=== PATIENT | male | born 1935 | race Caucasian/White ===

== ENCOUNTER 2016-08-23 10:17 | Observation (INO) | payer OTHER, BC ==
--- NOTE | 2016-08-23 11:04 | DX ---
PA and lateral chest. Clinical History: Trauma. Right-sided chest pain. Comparison Study: January 12, 2014.. Findings: Patchy atelectasis is present in the lung bases bilaterally. No pneumothorax or displaced r ib fracture identified. No evidence of pleural hemorrhage. Heart size is normal. Impression: Bilateral lower lobe atelectasis. No pneumothorax or displaced rib fracture identified. Rib detail films may be of benefit as appropriate clinically..
[2016-08-23] MEDS ORDERED: ASPIRIN 81 MG CHEWABLE TAB PO ONE (11:35)
--- NOTE | 2016-08-23 11:43 | CPEKG ---
Heart Rate: 51 RR Interval: 1176 P-R Interval: 220 QRSD Interval: 92 QT Interval: 440 QTC Interval: 406 P [place]: 36 QRS [place]: -50 T Wave [place]: 10 EKG Severity - ABNORMAL ECG - EKG Impression: SINUS RHYTHM EKG Impression: FIRST DEGREE AV BLOCK EKG Impression: LEFT ANTERIOR FASCICULAR BLOCK Electronically Signed By: Sandor Pratt 23-Aug-2016 15:40:28
[2016-08-23 11:46] LABS: % IMMATURE GRANULYOCYTES 0.5 % (0.0-1.1); ABSOLUTE IMMATURE GRANULOCYTES 0.04 10^3/uL (0.00-0.10); ADD DIFF? NO; ADD MORPH? NO; ADD SCAN? NO; ATYPICAL LYMPHOCYTE FLAG 70 (0-99); FRAGMENT RBC FLAG 0 (0-99); HEMATOCRIT 37.1 % (40.0-51.0); HEMOGLOBIN 12.4 g/dL (13.7-17.5); LEFT SHIFT FLG 0 (0-99); LIPEMIA HEMOLYSIS FLAG 80 (0-99); MEAN CELL HEMOGLOBIN 32.7 pg (27.9-34.1); MEAN CELL HEMOGLOBIN CONCENTR. 33.4 g/dL (32.4-36.7); MEAN CELL VOLUME 97.9 fL (81.5-99.8); MEAN PLATELET VOLUME 9.8 fL (8.7-11.7); PLATELET CLUMPS FLAG 0 (0-99); PLATELET COUNT 162 10^3/uL (150-400); RED BLOOD CELL COUNT 3.79 10^6/uL (4.40-6.38); RED CELL DISTRIBUTION WIDTH 14.2 % (11.5-15.2)
[2016-08-23] MEDS ORDERED: NS 500 ML IV ONE (12:00)
[2016-08-23 12:07] LABS: ANION GAP 9 mEq/L (8-16); CALCIUM 8.6 mg/dL (8.5-10.4); CARBON DIOXIDE 22 mEq/l (22-31); CHLORIDE 107 mEq/L (97-110); CREATININE 1.7 mg/dL (0.7-1.3); GLOMERULAR FILTRATION RATE 39; GLUCOSE 115 mg/dL (70-100); POTASSIUM 4.2 mEq/L (3.5-5.2); SODIUM 138 mEq/L (134-144)
[2016-08-23 12:23] LABS: TROPONIN I < 0.012 ng/mL (0-0.034)
--- NOTE | 2016-08-23 12:34 | UCPHY ---
H & P Patient Type: Established Chief Complaint Nursing Narrative: fell 1 wk ago hurting upper chest - neg CT @ [facility] [place] after- has had URI x 2 wks with wet cough- yesterday while getting ready in the am felt sudden rt chest pain rad to lower rt rib area- cont today inc. pain with Deep breath and Coughing- some SOB with the pain- finished antibotics last week for URI Time Seen by Provider: 08/23/16 11:17 HPI/ROS: This patient complains of right-sided pleuritic chest pain. He describes it as in the lower portion of his chest in explains that it is worse with a deep breath. This started last night gradual in onset and persists today a moderate severity. He notes no exacerbating or alleviating factors for symptoms. He reports that this is different than his presentation to [facility] [place] 6 days ago. He explains that he has syncopal episode resulted in a minor head injury. He was evaluated for that at [facility] [place] Emergency Department with a negative head and neck CT. He also describes antecedent URI symptoms with a congested feeling cough for 2 weeks but no significant worsening of the symptoms recently. He sees Dr. mendez from Cardiology as history of 2 prior cardiac stents as well as previous syncopal episodes of unclear etiology and he has an implanted monitor his chest to evaluate for dysrhythmias. Reports he does not have a pacemaker. ROS: Constitutional: No fevers or other complaints HEENT: No headache. Musculoskeletal: No recent injuries or pain. Pulmonary: As per HPI. He denies any significant production from his intermittent cough which she feels is improving. Cardiovascular: He has noticed heart palpitations. He reports no diaphoresis. No recent nausea or vomiting. No lower extremity swelling though he does report calf cramps more frequently in recent nights. GI: No belly pain again no nausea or vomiting. No diarrhea. : No complaints integumentary: No skin rash. 10 point ROS is otherwise negative Source: Patient, Family Exam Limitations: No limitations - Personal History Current Tetanus Diphtheria and Acellular Pertussis (TDAP): Yes - Medical/Surgical History PMH: Paroxysmal A flutter and AFib On Pradaxa Renal insufficiency followed by Dr. Jerome Hx Asthma: No Hx Chronic Respiratory Disease: No Hx Diabetes: No Hx Cardiac Disease: Yes Hx Renal Disease: No Hx Cirrhosis: No Hx Alcoholism: No Hx HIV/AIDS: No Hx Splenectomy or Spleen Trauma: No Other PMH: 2 CARDIAC STENTS - Family History Significant Family History: No pertinent family hx - Social History Smoking Status: Never smoked Alcohol Use: None Drug Use: None - Physical Exam Exam: General Appearance: Pleasant 80-year-old male Alert, no distress. Eyes: Pupils equal and round no pallor or injection. ENT, Mouth: Mucous membranes moist. Respiratory: There are no retractions, lungs are clear to auscultation. No chest wall tenderness. Cardiovascular: Regular rate and rhythm. No murmur gallop or rub appreciated. No leg tenderness or swelling Gastrointestinal: Abdomen is soft and nontender, no masses, bowel sounds normal. Neurological: Alert with no focal deficits. Skin: Warm and dry, no rashes. Musculoskeletal: Neck is supple nontender. Extremities are symmetrical, full range of motion. Psychiatric: Mood and affect are normal DIFFERENTIAL DIAGNOSIS: After history and physical exam differential diagnosis was considered for PE, pneumonia cardiac dysrhythmia, sick sinus syndrome, Constitutional: Initial Vital Signs Temperature (C) 36.6 C 08/23/16 10:39 Heart Rate 75 08/23/16 10:39 Respiratory Rate 20 08/23/16 10:39 Blood Pressure 145/78 H 08/23/16 10:39 O2 Sat (%) 95 08/23/16 10:39 O2 Delivery Mode Room Air Allergies/Adverse Reactions: No Known Allergies Allergy (Verified 05/01/14 10:20) Home Medications: Medication Instructions Recorded Aspirin [Aspirin 81mg (OTC)] 81 mg PO DAILY 10/21/13 Atorvastatin Calcium [Lipitor 10 10 mg PO HS 10/21/13 mg (RX)] Calcium Carb/Vit D3/Minerals 1 each PO DAILY 10/21/13 [Calcium 600+D Plus Minerals Tb] Cholecalciferol Vit D3 [Vitamin D3 1,000 units PO DAILY 10/21/13 (OTC)] Folic Acid [Folic Acid 1 MG (RX)] 800 mcg PO BID 10/21/13 Lisinopril [Zestril 10 mg (RX)] 10 mg PO DAILY 10/21/13 Methotrexate Sodium [Methotrexate] 12.5 mg PO FR 10/21/13 Metoprolol Succinate Xr [Toprol Xl] 25 mg PO DAILY 10/21/13 Multivitamins [Tab-A-Michael] 1 each PO DAILY 10/21/13 inFLIXimab [Remicade Inj 100 mg 500 mg IV Q56D 10/21/13 (RX)] Ranitidine HCl 05/01/14 Pradaxa 08/23/16 Tamsulosin HCl 08/23/16 Medical Decision Making - Diagnostics EKG Interpretation: 12 lead EKG performed shortly after arrival reveals sinus rhythm at 51 PA interval 220 QRS of 92, QTC of 406 [place]: P of 36, QRS of-50, T of 10 Overall assessment sinus rhythm with first-degree AV block and left anterior fascicular block. ED Course/Re-evaluation: IV, monitor, aspirin 324 Patient has been intermittently bradycardic to the 40s while here but does not notice significant lightheadedness with this. His other vital signs have been stable. Patient has an elevated D-dimer. This in the setting of the pleuritic pain and some calf cramps recently and elevated D-dimer, I feel he warrants further evaluation to rule out PE. However the patient's creatinine is elevated and his BUN is creatinine is elevated c/w his renal insuffiency. Given his age, comorbidities of coronary artery disease with previous stents and recent syncopal episodes feel this patient warrants a telemetry admission for further evaluation. Troponin is normal. Other labs are normal. Despite this presentation he is stable here. He may warrant a V/Q scan or other further workup. I spoke with Mallory Pearec, hospitalist who accepts this patient to Dr. Grajeda for telemetry admission for further evaluation. I spoke with Dr. Malone , the patient's answering service operator who reveals that he intermittently has some atrial fib and flutter but nothing recently on the monitor. He agrees with the plan for admission for further evaluation. Patient did have a normal appearing nml appearing perfusion test in November of this past year On a recheck at 2:45 p.m. the patient reports no chest pain at rest. With deep breath or cough he has pain on the right side. His vitals remained stable - Data Points Laboratory Results: Laboratory Results 08/23/16 11:44 08/23/16 11:44 08/23/16 08/23/16 14:00 11:44 WBC 7.37 10^3/uL (3.80-9.50) RBC 3.79 L 10^6/uL (4.40-6.38) Hgb 12.4 L g/dL (13.7-17.5) Hct 37.1 L % (40.0-51.0) MCV 97.9 fL (81.5-99.8) MCH 32.7 pg (27.9-34.1) MCHC 33.4 g/dL (32.4-36.7) RDW 14.2 % (11.5-15.2) Plt Count 162 10^3/uL (150-400) MPV 9.8 fL (8.7-11.7) Neut % (Auto) 65.2 % (39.3-74.2) Lymph % (Auto) 16.7 % (15.0-45.0) [place] % (Auto) 11.1 % (4.5-13.0) Eos % (Auto) 5.4 % (0.6-7.6) Baso % (Auto) 1.1 % (0.3-1.7) Nucleat RBC Rel Count 0.0 % (0.0-0.2) Absolute Neuts (auto) 4.80 10^3/uL (1.70-6.50) Absolute Lymphs (auto) 1.23 10^3/uL (1.00-3.00) Absolute Monos (auto) 0.82 H 10^3/uL (0.30-0.80) Absolute Eos (auto) 0.40 10^3/uL (0.03-0.40) Absolute Basos (auto) 0.08 10^3/uL (0.02-0.10) Absolute Nucleated RBC 0.00 10^3/uL (0-0.01) Immature Gran % 0.5 % (0.0-1.1) Immature Gran # 0.04 10^3/uL (0.00-0.10) D-Dimer 2.05 H ug/mLFEU (0.00-0.50) Sodium 138 mEq/L (134-144) Potassium 4.2 mEq/L (3.5-5.2) Chloride 107 mEq/L (97-110) Carbon Dioxide 22 mEq/l (22-31) Anion Gap 9 mEq/L (8-16) BUN 24 H mg/dL (7-23) Creatinine 1.7 H mg/dL (0.7-1.3) Estimated GFR 39 Glucose 115 H mg/dL (70-100) Calcium 8.6 mg/dL (8.5-10.4) Troponin I < 0.012 ng/mL (0-0.034) Urine Color YELLOW Urine Appearance CLEAR Urine pH 6.0 (5.0-7.5) Ur Specific [place] 1.010 (1.002-1.030) Urine Protein NEGATIVE (NEGATIVE) Urine Ketones NEGATIVE (NEGATIVE) Urine Blood 2+ H (NEGATIVE) Urine Nitrate NEGATIVE (NEGATIVE) Urine Bilirubin NEGATIVE (NEGATIVE) Urine Urobilinogen 0.2 EU (0.2-1.0) Ur Leukocyte Esterase NEGATIVE (NEGATIVE) Urine RBC 5-10 H /hpf (0-3) Urine WBC 0-1 /hpf (0-3) Ur Epithelial Cells NONE SEEN /lpf (NONE-1+) Urine Sperm OCCASIONAL H /hpf (NONE SEEN) Ur Culture Indicated? Pending Urine Glucose NEGATIVE (NEGATIVE) Medications Given: Discontinued Medications Aspirin (Aspirin) 324 mg PO EDNOW ONE Stop: 08/23/16 11:36 Last Admin: 08/23/16 11:44 Dose: 324 mg Sodium Chloride (Ns) 500 mls @ 1,500 mls/hr IV ONCE ONE Stop: 08/23/16 12:19 Last Admin: 08/23/16 12:00 Dose: 500 mls Departure - Departure Disposition: [facility] Inpatient Acute Clinical Impression: Pleuritic chest pain, 1St degree AV block, Sinus bradycardia Condition: Fair - PQRS PQRS Measurement: 134: Depression screening and followup, PRIME MD-PHQ2 (12 years and older) Over the last 2 weeks, how often have you been bothered by any of the following problems? 1. Feeling down, depressed, or hopeless? 2. Little interest or pleasure in doing things? Patient answered no to both 1 and 2 130: Documentation of medications. Reviewed all patient medications, doses, route and frequency. 226: Do you smoke? [No.] 47: 65 and older: Advanced care planning. Patient designates surrogate decision maker as spouse 51: 18 years old and older with diagnosis of COPD, spirometry performance. NA 52: 18 years old and older with COPD and symptoms of COPD or FEV1<60% predicted prescribed a B Agonist. NA
[2016-08-23 14:12] LABS: COLOR YELLOW; LEUKOCYTE ESTERASE,URINE NEGATIVE (NEGATIVE); NITRITE,URINE NEGATIVE (NEGATIVE)
[2016-08-23 14:18] LABS: WBC,URINE 0-1 /hpf (0-3)
[2016-08-23] MEDS ORDERED: ONDANSETRON 4 MG/2 ML VIAL IVP PRN (19:42)
[2016-08-23] MEDS ORDERED: ONDANSETRON DISINTEGRATING 4 MG TAB PO PRN (19:42)
[2016-08-23] MEDS ORDERED: ACETAMINOPHEN 325 MG TAB PO PRN (19:42)
--- NOTE | 2016-08-23 20:07 | PDGENHP ---
History and Physical - Chief Complaint RIGHT SIDED CHEST PAIN - History of Present Illness 80 YO Male with MMP sent from urgent care for further evaluation of right sided chest pain since this morning and elevated d-dimer. He has extensive cardiac hx and obtains his care from Dr. Malone and Dr. Sheikh. On Saturday (6 days ago) he had a syncopal episode with LOC and was admitted to [facility]. Per his report, he had a unremarkable CT brain and neck. No chest imaging was performed per his report. He did have nuclear stress test which was normal per his report. He was started on metoprolol He has a hx of bradycardia and syncope dating back to at least 2013 per notes. He is on Pradaxa for AC for unclear reasons, although per the urgent care notes , there has been reported afib. 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 His D-Dimer was elevated, but given his CRF, a CTA was not performed. He has pleuritic pain and some pain with movement. Denies CP other than right sided pain which is mostly around the lower right ribs. A CXR showed atelectasis, but no infiltrate ROS:+ per HPI, otherwise negative PMHX: CAD, Syncope, bradycardia, Afib, Abdominal Aortic Dissection, HTN, HLD, Chronic renal insufficiency (baseline cr is 1.7) SOC: NO TOBACCO, NO ETOH MED/ALL: REVIEWED O: VSS, ON RA NAD AAOX3 MMM NO JVD RRR DECREASE LUNG SOUNDS CHEST WITH NO TTP NO RIGHT RIB PAIN ON PALPATION NO LE EDEMA LABS REVIEWED: TROP NEGATIVE, D-DIMER SLIGHT ELEVATION, CR. 1.7, CBC OK CXR: ATELECTASIS EKG: FIRST DEGREE BLOCK, NO ACUTE CHANGES I/P #PLEURITIC CHEST PAIN OF UNCLEAR ETIOLOGY. LIKELY NOT CARDIAC IN NATURE #BRADYCARDIA IN SETTING OF CHRONIC BRADYCARDIA WITH RECENT RESTART OF METOPROLOL #HX OF AFIB PER REPORT #RECENT SYNCOPE EPISODE (6 DAYS AGO, NONE SINCE), W/U LIKELY AT [facility] #ELEVATED D-DIMER IN A PT ON CHRONIC AC WITH PRADAXA #HTN WITH REPORTED LOW INTERMITTENT BP #CRI: AT BASELINE #RA PLAN: GIVEN THAT HE IS ON PRADAXA, I DOUBT THAT THIS IS P.E. WILL CONTINUE HIS CURRENT DOSE WHICH IS LIKELY BEING RENALLY DOSED. WILL CHECK A F/Q SCAN. WILL ALSO OBTAIN SERIAL TROPS AND TTE, ALTHOUGH SUSPECT THAT THIS IS NOT CARDIAC IN NATURE. ETIOLOGY MAY BE COSTOCHONDRITIS VS MUSCULAR VS OTHER. GIVEN HIS CRI, WILL HOLD OFF ON CONTRAST STUDY FOR NOW. SYMPTOMATIC MGMT GIVEN THAT HE HAS BRADYCARDIA AND SYNCOPE, WILL STOP METOPROLOL. WILL NEED TO MONITOR CLOSELY GIVEN REPORTED HX OF AFIB. CARDS WAS NOTIFIED BY THE URGENT CARE. WILL DECREASE LISINOPRIL TO 2.5 MG DAILY. HE TAKES THIS FOR HTN AND RENAL PROTECTION RESTART APPROPRIATE HOME MEDS LIMITED CODE: DOES NOT WANT INTUBATION TOTAL CARE TIME IS 65 MINUTES History Information - Allergies/Home Medication List Allergies/Adverse Reactions: No Known Allergies Allergy (Verified 05/01/14 10:20) Home Medications: Atorvastatin Calcium [Lipitor 10 mg (RX)] 10 mg PO HS 10/21/13 [Last Taken 10/20 23:00] Calcium Carb/Vit D3/Minerals [Calcium 600+D Plus Minerals Tb] 1 each PO DAILY [Last Taken 10/20/13 08:00] Cholecalciferol Vit D3 [Vitamin D3 (OTC)] 1,000 units PO DAILY 10/21/13 [Last Taken 10/20/13 08:00] Folic Acid [Folic Acid 1 MG (RX)] 800 mcg PO BID 10/21/13 [Last Taken 10/20/13 18:30] Methotrexate Sodium [Methotrexate] 12.5 mg PO FR 10/21/13 [Last Taken 10/16/13] inFLIXimab [Remicade Inj 100 mg (RX)] 500 mg IV Q56D 10/21/13 [Last Taken ] Ranitidine HCl 05/01/14 [Last Taken Unknown] Aspirin EC [Aspirin EC 81 mg (*)] 81 mg PO DAILY 08/23/16 [Last Taken 08/23/16] Dabigatran Etexilate Mesylate [Pradaxa] 75 mg PO BID 08/23/16 [Last Taken 08:00] Lisinopril [Zestril 5 mg (*)] 5 mg PO HS 08/23/16 [Last Taken 08/22/16] Metoprolol Succinate Xr [Toprol Xl 25 mg (*)] 25 mg PO DAILY 08/23/16 [Last Taken 08/23/16] Multivitamins [Multivitamin (*)] 1 each PO DAILY 08/23/16 [Last Taken 08/23/16] Tamsulosin HCl 08/23/16 [Last Taken Unknown] I have personally reviewed and updated: medical history, social history - Social History Smoking Status: Never smoked Alcohol Use: None Drug Use: None Physical Exam Temp Pulse Resp BP Pulse Ox 36.7 C 55 L 20 134/68 H 95 08/23/16 17:43 08/23/16 17:43 08/23/16 17:43 08/23/16 17:43 08/23/16 17:43 Lab Data & Imaging Review 08/23/16 11:44 08/23/16 11:44 WBC 7.37 10^3/uL (3.80-9.50) 08/23/16 11:44 RBC 3.79 10^6/uL (4.40-6.38) L 08/23/16 11:44 Hgb 12.4 g/dL (13.7-17.5) L 08/23/16 11:44 Hct 37.1 % (40.0-51.0) L 08/23/16 11:44 MCV 97.9 fL (81.5-99.8) 08/23/16 11:44 MCH 32.7 pg (27.9-34.1) 08/23/16 11:44 MCHC 33.4 g/dL (32.4-36.7) 08/23/16 11:44 RDW 14.2 % (11.5-15.2) 08/23/16 11:44 Plt Count 162 10^3/uL (150-400) 08/23/16 11:44 MPV 9.8 fL (8.7-11.7) 08/23/16 11:44 Neut % (Auto) 65.2 % (39.3-74.2) 08/23/16 11:44 Lymph % (Auto) 16.7 % (15.0-45.0) 08/23/16 11:44 [place] % (Auto) 11.1 % (4.5-13.0) 08/23/16 11:44 Eos % (Auto) 5.4 % (0.6-7.6) 08/23/16 11:44 Baso % (Auto) 1.1 % (0.3-1.7) 08/23/16 11:44 Nucleat RBC Rel Count 0.0 % (0.0-0.2) 08/23/16 11:44 Absolute Neuts (auto) 4.80 10^3/uL (1.70-6.50) 08/23/16 11:44 Absolute Lymphs (auto) 1.23 10^3/uL (1.00-3.00) 08/23/16 11:44 Absolute Monos (auto) 0.82 10^3/uL (0.30-0.80) H 08/23/16 11:44 Absolute Eos (auto) 0.40 10^3/uL (0.03-0.40) 08/23/16 11:44 Absolute Basos (auto) 0.08 10^3/uL (0.02-0.10) 08/23/16 11:44 Absolute Nucleated RBC 0.00 10^3/uL (0-0.01) 08/23/16 11:44 Immature Gran % 0.5 % (0.0-1.1) 08/23/16 11:44 Immature Gran # 0.04 10^3/uL (0.00-0.10) 08/23/16 11:44 D-Dimer 2.05 ug/mLFEU (0.00-0.50) H 08/23/16 11:44 Sodium 138 mEq/L (134-144) 08/23/16 11:44 Potassium 4.2 mEq/L (3.5-5.2) 08/23/16 11:44 Chloride 107 mEq/L (97-110) 08/23/16 11:44 Carbon Dioxide 22 mEq/l (22-31) 08/23/16 11:44 Anion Gap 9 mEq/L (8-16) 08/23/16 11:44 BUN 24 mg/dL (7-23) H 08/23/16 11:44 Creatinine 1.7 mg/dL (0.7-1.3) H 08/23/16 11:44 Estimated GFR 39 08/23/16 11:44 Glucose 115 mg/dL (70-100) H 08/23/16 11:44 Calcium 8.6 mg/dL (8.5-10.4) 08/23/16 11:44 Troponin I < 0.012 ng/mL (0-0.034) 08/23/16 11:44 Urine Color YELLOW 08/23/16 14:00 Urine Appearance CLEAR 08/23/16 14:00 Urine pH 6.0 (5.0-7.5) 08/23/16 14:00 Ur Specific [place] 1.010 (1.002-1.030) 08/23/16 14:00 Urine Protein NEGATIVE (NEGATIVE) 08/23/16 14:00 Urine Ketones NEGATIVE (NEGATIVE) 08/23/16 14:00 Urine Blood 2+ (NEGATIVE) H 08/23/16 14:00 Urine Nitrate NEGATIVE (NEGATIVE) 08/23/16 14:00 Urine Bilirubin NEGATIVE (NEGATIVE) 08/23/16 14:00 Urine Urobilinogen 0.2 EU (0.2-1.0) 08/23/16 14:00 Ur Leukocyte Esterase NEGATIVE (NEGATIVE) 08/23/16 14:00 Urine RBC 5-10 /hpf (0-3) H 08/23/16 14:00 Urine WBC 0-1 /hpf (0-3) 08/23/16 14:00 Ur Epithelial Cells NONE SEEN /lpf (NONE-1+) 08/23/16 14:00 Urine Sperm OCCASIONAL /hpf (NONE SEEN) H 08/23/16 14:00 Ur Culture Indicated? NOT INDICATED (NI) 08/23/16 14:00 Urine Glucose NEGATIVE (NEGATIVE) 08/23/16 14:00 Assessment & Plan Assessment: 1St degree AV block (Acute) Pleuritic chest pain (Acute) Sinus bradycardia (Acute)
[2016-08-23] MEDS: DABIGATRAN ETEXILATE MESYL 75 MG CAP PO SCH (22:22)
[2016-08-23] MEDS: OXYCODONE/APAP 5/325 TAB PO PRN (22:26)
[2016-08-24 00:40] VITALS: RESP 16
[2016-08-24 05:05] LABS: % IMMATURE GRANULYOCYTES 0.4 % (0.0-1.1); ABSOLUTE IMMATURE GRANULOCYTES 0.03 10^3/uL (0.00-0.10); ADD DIFF? NO; ADD MORPH? NO; ADD SCAN? NO; ATYPICAL LYMPHOCYTE FLAG 80 (0-99); FRAGMENT RBC FLAG 0 (0-99); HEMOGLOBIN 12.4 g/dL (13.7-17.5); LEFT SHIFT FLG 0 (0-99); LIPEMIA HEMOLYSIS FLAG 80 (0-99); MEAN CELL HEMOGLOBIN 32.6 pg (27.9-34.1); MEAN CELL HEMOGLOBIN CONCENTR. 33.5 g/dL (32.4-36.7); MEAN CELL VOLUME 97.4 fL (81.5-99.8); MEAN PLATELET VOLUME 10.2 fL (8.7-11.7); PLATELET CLUMPS FLAG 10 (0-99); PLATELET COUNT 176 10^3/uL (150-400); RED CELL DISTRIBUTION WIDTH 14.1 % (11.5-15.2)
[2016-08-24 05:17] LABS: ANION GAP 8 mEq/L (8-16); CALCIUM 8.4 mg/dL (8.5-10.4); CARBON DIOXIDE 25 mEq/l (22-31); CHLORIDE 108 mEq/L (97-110); CREATININE 1.7 mg/dL (0.7-1.3); GLOMERULAR FILTRATION RATE 39; GLUCOSE 83 mg/dL (70-100); MAGNESIUM 1.8 mg/dL (1.6-2.3); POTASSIUM 4.4 mEq/L (3.5-5.2); SODIUM 141 mEq/L (134-144)
[2016-08-24 05:24] LABS: TROPONIN I < 0.012 ng/mL (0-0.034)
[2016-08-24] MEDS ORDERED: [UNRECOGNIZED DRUG - OTHER] PO SCH (09:00)
[2016-08-24] MEDS ORDERED: ASPIRIN EC 81 MG TAB PO SCH (09:00)
[2016-08-24] MEDS ORDERED: MULTIVITAMINS 1 EACH TAB PO SCH (09:00)
[2016-08-24] MEDS ORDERED: MINERALS PO SCH (09:00)
[2016-08-24] MEDS ORDERED: LISINOPRIL 2.5 MG TAB PO SCH (09:00)
[2016-08-24] MEDS ORDERED: CALCIUM CARB W/VIT D 500 MG TAB PO SCH (09:00)
[2016-08-24] MEDS ORDERED: FOLIC ACID 1 MG TAB PO SCH (09:00)
[2016-08-24] MEDS ORDERED: VIT D3 PO SCH (09:00)
[2016-08-24] MEDS ORDERED: CHOLECALCIFEROL VIT D3 1,000 UNITS TAB PO SCH (09:00)
[2016-08-24] MEDS ORDERED: CALCIUM CARB PO SCH (09:00)
[2016-08-24] MEDS: DABIGATRAN ETEXILATE MESYL 75 MG CAP PO SCH (09:32)
[2016-08-24] MEDS: OXYCODONE/APAP 5/325 TAB PO PRN (10:26)
[2016-08-24] MEDS ORDERED: METHOTREXATE 2.5 MG TAB PO ONE (10:30)
--- NOTE | 2016-08-24 12:07 | NM ---
Nuclear Medicine Ventilation-Perfusion Lung Scan Clinical Indications: 80-year-old male inpatient with trauma and right-sided chest pain. Rule out PE . Technique: Ventilation imaging was performed with 20.4 mCi of 133 xenon, administered by inhalation. Single-breath, equilibrium, and washout phases were imaged. Perfusion imaging was performed with 5 .3 mCi of technetium 99m MAA injected intravenously. Perfusion images were acquired in multiple proj ections. Comparison study: Chest radiography, dated August 23, 2016, at 10:45 AM. Ventilation Findings: There is minimal matched irregularity at the right lung base, which is consider ed very low probability for PE. On the washout sequences, there is minimal retention of the radiotrac er at the left lung base. Impression: Very low probability for pulmonary artery embolism.
[2016-08-24 12:24] VITALS: BP 130/74; PULSE 68; TEMP 98.2; O2SAT 95
--- NOTE | 2016-08-24 14:50 | ECHO ---
[id number] + + [address] : : [place] [id number] : : [phone] + + Adult Echocardiographic Report + ------+ :Name: MARIE SCHULZ Date: 08/24/2016 08:32 AM : : Hospital Admission Number: [id number] Locatio n: 208: :: 1935 Gender: Male Height: 65 in : :Age: 80 yrs Race: WH Weight: 167 lb : :Reason For Study: Bradycardia : : BSA: 1.8 meters 2 : + ------+ MMode/2D Measurements & Calculations IVSd: 1.1 cm RVDd: 3.1 cm FS: 58.4 % LVOT diam: 2.0 cm LVPWd: 1.0 cm LVIDd: 4.0 cm EDV(Teich): LVOT area: LVIDs: 1.7 cm 68.7 ml 3.1 cm2 ESV(Teich): 7.8 ml EF(Teich): 88.7 % LVLd ap4: 7.7 cm SV(MOD-sp4): EDV(MOD-sp4): 57.0 ml 78.0 ml LVLs ap4: 5.7 cm ESV(MOD-sp4): 21.0 ml EF(MOD-sp4): 73.1 % Normal Measurement Values: + + :LVIDd (3.5-5.7cm) IVSd (0.6-1.1cm) LVPWd (0.6-1.1cm) Aortic Root (2.0-3.7cm)Left Atrium (1.5-4.0cm): :LV Vol(d) (76-115ml) LV Vol(s) (29-48ml) Ejec Fraction (50-65%)PV Ryan (0.6- 1.2m/s) TV Ryan (0.4-1.0m/s) : :MV E Ryan (0.8-1.0m/s)MV A Ryan (0.3-1.0m/s)LVOT Ryan (0.7-1.2m/s) Asc Ao Ryan ( 0.9-1.8m/s) : + + Doppler Measurements & Calculations MV E max ryan: MV V2 max: Ao V2 max: LV V1 mean P.8 cm/sec 105.1 cm/sec 168.7 cm/sec 3.0 mmHg MV A max ryan: MV max P.4 mmHg Ao max PG: LV V1 mean: 95.3 cm/sec MV V2 mean: 11.4 mmHg 81.7 cm/sec MV E/A: 0.99 72.8 cm/sec Ao mean PG: LV V1 VTI: 28.2 cm MV dec time: MV mean P.3 mmHg7.1 mmHg 0.26 sec MV V2 VTI: 35.9 cm Ao V2 mean: MVA(VTI): 2.4 cm2 126.0 cm/sec Ao V2 VTI: 40.8 cm LILLIE(I,D): 2.1 cm2 MR max ryan: SV(LVOT): 87.5 ml PA V2 max: PI end-d ryan: 354.4 cm/sec 118.4 cm/sec 97.7 cm/sec MR max PG: PA max P.2 mmHg 5.6 mmHg PA V2 mean: 74.8 cm/sec PA mean P.6 mmHg PA V2 VTI: 22.7 cm TR max ryan: Pulm Sys Ryan: 198.8 cm/sec 48.5 cm/sec TR max PG: Pulm Sanford Ryan: 15.8 mmHg 46.8 cm/sec RAP systole: Pulm A Revs Ryan: 10.0 mmHg 29.0 cm/sec RVSP(TR): Pulm A Revs Dur: 25.8 mmHg 0.11 sec Pulm S/D: 1.0 Left Ventricle The left ventricle is normal in size and function. There is normal left ventricular wall thickness. Ejection Fraction = 73%. There is Doppler evidence for diastolic dysfunction. No regional wall motion abnormalities noted. Right Ventricle The right ventricle is normal in size and function. Atria The left atrial size is normal. Right atrium not well visualized. The interatrial septum is intact with no evidence for an atrial septal defect. Mitral Valve There is mild mitral annular calcification. There is no mitral valve stenosis. There is mild mitral regurgitation. Tricuspid Valve The tricuspid valve is normal in structure and function. There is no tricuspid stenosis. There is trace tricuspid regurgitation. Right ventricular systolic pressure is normal. Aortic Valve There is mild aortic valve calcification. Mild Aortic Valve Calcification. The aortic valve is trileaflet. There is no aortic stenosis. There is no aortic insufficiency. Pulmonic Valve The pulmonic valve is not well visualized. There is no pulmonic valvular stenosis. Trace pulmonic valvular regurgitation. Great Vessels The aortic root is normal size. Pericardium/Pleural There is a fat pad seen. Conclusion A complete two-dimensional transthoracic echocardiogram was performed (2D, M-mode, Doppler and color flow Doppler). The left ventricle is normal in size and function. Ejection Fraction = 73%. There is Doppler evidence for diastolic dysfunction. Right atrium not well visualized. There is mild mitral annular calcification. There is mild mitral regurgitation. There is trace tricuspid regurgitation. Right ventricular systolic pressure is normal. There is mild aortic valve calcification. Trace pulmonic valvular regurgitation. Final Reading Physician: Eber Brannon signed on 08/24/2016 02:48 PM Ordering Physician: He Ramirez Performed By: Jessica Wilson
--- NOTE | 2016-08-24 15:35 | PDDCSUM ---
Discharge Summary Discharge Summary: DISCHARGE SUMMARY FOLLOW-UP ITEMS: Follow-up chest pain as an outpatient DATE OF ADMISSION: 08/23/2016 DATE OF DISCHARGE: 08/24/2016 DISCHARGE DIAGNOSES: 1. Acute chest pain 2. Suspected costochondritis 3. Chronic kidney disease stage 3 CONSULTATIONS: None PROCEDURES / IMAGING: V/Q scan demonstrating low probability of pulmonary embolism, echocardiogram demonstrating no focal wall motion abnormalities CHIEF COMPLAINT: Acute chest pain on right side SUBJECTIVE: Patient reports some ongoing right-sided chest discomfort exacerbated by coughing PHYSICAL EXAM ON DISCHARGE: Systolic blood pressure is 130, heart rate 60, negative orthostatics, afebrile overnight, satting well on room air, heart regular rate and rhythm with 1/6 systolic murmur at the sternum, good inspiratory and expiratory air movement bilaterally without any obstructive breath sounds on expiration LABS ON DISCHARGE: Troponin negative x3, creatinine 1.7, potassium 4.4, white blood cell count 7600 , hemoglobin 12.4 HOSPITAL COURSE BY PROBLEM: 1. Acute chest pain. Ruled out for acute coronary syndrome with negative troponin x3, ruled out for pulmonary embolism with negative V/Q scan, no focal wall motion abnormalities on echocardiogram. Patient has clearly reproducible chest pain which is most likely musculoskeletal in origin and will be treated as such as outlined below. 2. Suspected costochondritis. Patient has reproducible chest discomfort on the right side laterally in the intercostal space. Most likely etiology is coughing as well as recent strenuous overhead activity. Patient reports that his cough has improved and he is no longer engaging in strenuous overhead activity. I have recommended the combination of a heating pad as well as as needed Tylenol and Percocet if needed. I recommend that he avoid nonsteroidal anti-inflammatory medications given his chronic kidney disease. The patient should follow up his chest discomfort with his outpatient primary care provider. 3. Chronic kidney disease stage 3. Creatinine level at or near baseline, with creatinine 1.7, good urine output during this hospitalization. Recommend he follow up with Dr. Jerome as an outpatient. DISCHARGE MEDICATIONS: Please see official discharge medication reconciliation sheet in chart , Percocet as needed 0.5-1 tab, 20 tab prescribed, as needed Tylenol. DISCHARGE INSTRUCTIONS: Patient should utilize either stool softener, laxative, fiber supplement if he is utilizing narcotic pain medications for chest discomfort.
[2016-08-24] MEDS ORDERED: RANITIDINE HCL 150 MG PO SCH (21:00)
[2016-08-24] MEDS ORDERED: FAMOTIDINE 20 MG TAB PO SCH (21:00)
[2016-08-24] MEDS ORDERED: TAMSULOSIN HCL 0.4 MG CAP PO SCH (21:00)
[2016-08-24] MEDS ORDERED: ATORVASTATIN CALCIUM 10 MG TAB PO SCH (21:00)
== END 2016-08-24 16:15 | disposition home or self-care (01) ==
LOC: CED 10:17 → CEDHOLD 14:24 → F2W 17:37
PROVIDERS: ADMIT Internal Medicine; ATTEND Internal Medicine
DX: R07.9 Chest pain, unspecified (principal); N18.3 Chronic kidney disease, stage 3 (moderate); I25.10 Atherosclerotic heart disease of native coronary artery without angina pectoris; I48.91 Unspecified atrial fibrillation; I12.9 Hypertensive chronic kidney disease with stage 1 through stage 4 chronic kidney disease, or unspecified chronic kidney disease; E78.5 Hyperlipidemia, unspecified; R00.1 Bradycardia, unspecified; Z79.01 Long term (current) use of anticoagulants
CPT/HCPCS: 71020; 78582; 93005; 93306; 96360; 97161; A9540; G0378; G0463; G8978; G8979; G8980; 80048-PO; 81003-PO; 81015-PO; 84484-PO; 85025-PO; 85378-PO

== ENCOUNTER → 2016-11-07 | Outpatient (CLI) | payer OTHER, BC | LOC: BHFA 09:00 | PROVIDERS: ATTEND Internal Medicine Cardiovascular Disease | DX: R55 Syncope and collapse (principal); I10 Essential (primary) hypertension ==

== ENCOUNTER 2017-03-20 11:40 | Day surgery (SDC) | payer OTHER, BC ==
--- NOTE | 2017-03-20 12:25 | PDGENHP ---
History & Physical Chief Complaint: Linq removal History of Present Illness: 81 year old male presents for elective admission for implantable Loop recorder removal due to end of battery life Pertinent Past, Social, Family History: PMH: CAD, Essential Hypertension, Parox Atrial Flutter, PVD. Social: x 63 years, non smoker, rare etoh. Fam hx : non contributory Relevant Physical Exam: Awake, alert Appriopriate. S1/S2, no murmur, rub, gallop. CTAB. No edema Cardiorespiratory Assessment: 1. Hx of paroxysmal Atrial Flutter. 2. Hx of [employer] Loop Recorder implant secondary to syncope. 3. End of battery life of Loop recorder
[2017-03-20] MEDS ORDERED: LIDOCAINE 1% 300 MG/30 ML SDV ONE (12:30)
--- NOTE | 2017-03-20 12:34 | PDPROPOC ---
Sedation Plan of Care Sedation Plan of Care: vital signs stable, mental status noted, patient educated of risks, benefits, alternatives, patient can tolerate sedation ASA Classification: ASA 2 Planned drugs: fentanyl, midazolam Mallampati Score: Class 1 Mallampati Reference Image: Patient passed 3-3-2 rule?: Yes
[2017-03-20] MEDS ORDERED: fentaNYL 100 MCG/2 ML INJ ONE (12:40)
[2017-03-20] MEDS ORDERED: MIDAZOLAM 2 MG/2 ML VIAL ONE (12:40)
--- NOTE | 2017-03-20 13:32 | GPN ---
[f rep st] PROCEDURE NOTE DATE OF PROCEDURE: 03/20/2017 PROCEDURE PERFORMED: Medtronic implantable loop recorder Explant. INDICATION FOR PROCEDURE: The Medtronic loop recorder has reached end of battery life. PROCEDURE: After a short-form H and P, as well as sedation paperwork, as well as consents were obtai pratibha, the patient was brought to the cardiac label sewer. He was prepped and draped in a sterile fashion . He was given sedation of 2 mg of Versed and 50 mg of fentanyl. Once appropriate level of sedation was achieved, he underwent a local anesthetic with 1% lidocaine without epinephrine. An incision wa s made with a 5-blade scalpel, and the device was removed without complication. He tolerated procedu re well. Hemostasis was achieved. Carlos x3 were applied. Sterile dressing with Tegaderm was appl ied. PLAN: 1. Patient will be discharged home. 2. He will restart his anticoagulation this evening. 3. Will have patient return to the office in 1 week for staple removal and wound check. /[id number]/MODL
== END 2017-03-20 14:27 | disposition home or self-care (01) ==
LOC: FCATH 11:40
PROVIDERS: ATTEND Internal Medicine Cardiovascular Disease
PROC: 0JPT02Z Removal of Monitoring Device from Trunk Subcutaneous Tissue and Fascia, Open Approach (ICD-10-PCS; principal; 2017-03-20)
DX: Z45.09 Encounter for adjustment and management of other cardiac device (principal); I48.92 Unspecified atrial flutter; R55 Syncope and collapse
CPT/HCPCS: J2250; J3010

== ENCOUNTER → 2017-06-28 | Outpatient (CLI) | payer OTHER, BC ==
[~2017-06-28] MED LIST: IOPAMIDOL (ISOVUE 370) 100 ML BTL IV ONE
== END ==
LOC: CIMAGING 11:44
PROVIDERS: ATTEND Internal Medicine Rheumatology
DX: I70.91 Generalized atherosclerosis (principal); I25.10 Atherosclerotic heart disease of native coronary artery without angina pectoris; I65.01 Occlusion and stenosis of right vertebral artery; Q78.2 Osteopetrosis; N26.1 Atrophy of kidney (terminal)
CPT/HCPCS: 71275; Q9967

== ENCOUNTER → 2017-07-19 | Day surgery (SDC) | payer OTHER, BC | END | disposition home or self-care (01) | LOC: BMCIMAGING 08:02 | PROVIDERS: ATTEND Urology | PROC: 0VB03ZX Excision of Prostate, Percutaneous Approach, Diagnostic (ICD-10-PCS; principal; 2017-07-19) | DX: R97.20 Elevated prostate specific antigen [PSA] (principal) ==